=== PATIENT | male | born 1970 | race Caucasian/White ===

== ENCOUNTER 2018-01-18 12:27 | Emergency (ER) | payer OTHER ==
[~2018-01-18] VITALS: Ht 177.8 cm; Wt 122.5 kg
[2018-01-18] MEDS ORDERED: ATENOLOL 100MG100 MG PO (12:53)
[2018-01-18] MEDS ORDERED: CENTRUM SILVER1 EAC2 PO (12:54)
[2018-01-18] MEDS ORDERED: LISINOPRIL10 MG PO (12:54)
[2018-01-18] MEDS ORDERED: ZYRTEC10 M5 PO (12:54)
[2018-01-18] MEDS ORDERED: ZOCOR20 MG PO (12:54)
[2018-01-18] MEDS ORDERED: CIPROFLOXIN HC2.5 M1 OPHTHALMIC (13:04)
[2018-01-18 13:55] VITALS: BP 125/78
== END 2018-01-18 13:56 | disposition home or self-care (01) ==
LOC: M.ERS 12:27
DX: S05.01XA Injury of conjunctiva and corneal abrasion without foreign body, right eye, initial encounter (principal); I10 Essential (primary) hypertension; E78.00 Pure hypercholesterolemia, unspecified; X58.XXXA Exposure to other specified factors, initial encounter; Y93.89 Activity, other specified; Y92.89 Other specified places as the place of occurrence of the external cause; Y99.8 Other external cause status